=== PATIENT | male | born 1990 | race Caucasian/White ===

== ENCOUNTER 2017-06-14 18:26 | Emergency (ER) | payer MEDICAID ==
[~2017-06-14] VITALS: Ht 172.7 cm; Wt 79.4 kg
[2017-06-14 18:26] VITALS: BP_SYST 151
[2017-06-14 18:40] VITALS: BP_SYST 151
== END 2017-06-14 18:40 ==
LOC: SED 18:26 → EDBD 18:26 → SED 18:40
DX: Z02.89 Encounter for other administrative examinations (principal); F11.10 Opioid abuse, uncomplicated
CPT/HCPCS: 99283